=== PATIENT | male | born 1955 | race Caucasian/White ===

== ENCOUNTER → 2016-09-25 | Outpatient (CLI) | payer BC ==
[~2016-09-25] MED LIST: ACETAMINOPHEN650 M4 PO; ALBUTEROL17 G1 INH; ASPIRIN EC81 M1 PO; ASPIRIN81 M1 PO; CYANOCOBAL1000 MCG/M INJ; DICLOFENAC PO; FOLIC ACID1 MG PO; GENTLE LAXATIVE10 MG PR; K-DUR20 ME2 PO; LISINOPRIL PO; LISINOPRIL5 MG PO; LOVAZA1 G PO; METOPROLOL SUCC25 MG PO; PERCOCET 7.5-31 EACH PO; PREDNISONE PO; PROTONIX PO; SIMVASTATIN40 MG PO; TOPROL XL PO; TYLENOL325 M1 PO; VITAMIN B 12 IM; VOLTAREN50 MG PO; XANAX1 MG PO; ZITHROMAX PO; ZOCOR PO
--- NOTE | ~2016-09-25 | CT55 ---
[facility] A Service [facility] RADIOLOGY TEXT RESULTS PATIENT: JABARI ARCHER LOCATION: [facility] : 51 UNIT #: [id number] AGE: [address]: Sherri Torres MD SEX: M ORDER DR: [id number] [facility] [address]. [place], [place] [address] [id number] O MR#: [id number] Acc #: [id number] NAME: JABARI ARCHER. : 1955 SEX: M STUDY DATE/TIME: 09/25/2016 15:17 UNIT: [facility] ROOM: STUDY DESCRIPTION: CT Chest W Con Attending Physician: Sherri Torres M.D. Referring Physician: Sherri Torres M.D. Ordering Physician: Sherri Torres M.D. Primary Care Physician: Michael Lyon M.D. MEDICAL IMAGING REPORT This report is preliminary unless electronic signature is present EXAM CT chest with contrast INDICATIONS Colon cancer. Observation for metastatic disease. TECHNIQUE CT of the chest was performed following the administration of IV contrast. Coronal and sagittal reformatted images were obtained. This CT exam was performed with one or more of the following radiation dose reduction techniques: automatic exposure control, adjustment of mA and/or kV according to patient size, and iterative reconstruction. COMPARISON 03/13/16. FINDINGS Emphysema. There is no suspicious pulmonary nodule. There is no lymphadenopathy or pleural effusion. Please refer to separately dictated CT of the abdomen and pelvis for findings below the diaphragm. The bone windows are unremarkable. IMPRESSION No evidence for metastatic disease to the chest. Dictated by... Edmar Saldana M.D. THIS IS AN ELECTRONICALLY VERIFIED REPORT Edmar Saldana M.D. at 09/27/2016 4:00 PM BRENDA/raymundo [facility] A [facility] RADIOLOGY TEXT RESULTS PATIENT: JABARI ARCHER LOCATION: [facility] : 53 UNIT #: [id number] AGE: [address]: Sherri Torres MD SEX: M ORDER DR: TD: 09/26/2016 16:37 JOB #: [id number] MEDICAL IMAGING REPORT Page 1 of 1 COPY
--- NOTE | ~2016-09-25 | CT2 ---
[facility] A Service [facility] RADIOLOGY TEXT RESULTS PATIENT: JABARI ARCHER LOCATION: [facility] : 51 UNIT #: [id number] AGE: [address]: Sherri Torres MD SEX: M ORDER DR: [id number] [place] [id number] [facility]. [place], [place] [address] [id number] O MR#: [id number] Acc #: [id number] NAME: JABARI ARCHER. : 1955 SEX: M STUDY DATE/TIME: 09/25/2016 15:17 UNIT: [facility] ROOM: STUDY DESCRIPTION: CT Abd and Pelv W Cont Attending Physician: Sherri Torres M.D. Referring Physician: Sherri Torres M.D. Ordering Physician: Sherri Torres M.D. Primary Care Physician: Michael Lyon M.D. MEDICAL IMAGING REPORT This report is preliminary unless electronic signature is present EXAM CT of the abdomen and pelvis contrast. INDICATIONS History of colon cancer. Routine surveillance. Observation of a malignant process. TECHNIQUE CT of the abdomen and pelvis was performed following administration of oral and IV contrast. Coronal and sagittal reformatted images were obtained. This CT exam was performed with one or more of the following radiation dose reduction techniques: automatic exposure control, adjustment of mA and/or kV according to patient size, and iterative reconstruction. COMPARISON Comparison with 03/13/2016. FINDINGS Stable presumed tiny cysts in the dome of the liver. The gallbladder is unremarkable. The spleen is unremarkable. The kidneys, adrenal glands and pancreas are unremarkable. PELVIS: Prostatomegaly. Postop changes from partial colectomy. There is no suspicious lymphadenopathy. The bone windows demonstrate postoperative changes of the lumbar spine. IMPRESSION Stable changes of partial colectomy. No evidence for metastatic disease. Dictated by... [facility] A Service [facility] RADIOLOGY TEXT RESULTS PATIENT: JABARI ARCHER LOCATION: [facility] : 51 UNIT #: [id number] AGE: [address]: Sherri Torres MD SEX: M ORDER DR: Edmar Saldana M.D. THIS IS AN ELECTRONICALLY VERIFIED REPORT Edmar Saldana M.D. at 09/27/2016 4:00 PM BRENDA/kae TD: 09/26/2016 16:46 JOB #: [id number] MEDICAL IMAGING REPORT Page 1 of 1 COPY
[2016-09-25 16:06] LABS: POC - CREATININE 0.84 mg/dL (0.64-1.27); POC - GFR >60.0 mL/min (>60)
== END | disposition home or self-care (01) ==
LOC: CCAT 12:58
PROVIDERS: Internal Medicine Hematology
DX: Z08 Encounter for follow-up examination after completed treatment for malignant neoplasm (principal); Z90.49 Acquired absence of other specified parts of digestive tract; Z85.038 Personal history of other malignant neoplasm of large intestine
CPT/HCPCS: 71260; 74177; 82565; Q9967